=== PATIENT | male | born 1985 | race Caucasian/White ===

== ENCOUNTER 2024-01-12 09:01 | Emergency (ER) | payer OTHER, SELFPAY ==
[2024-01-12 09:02] VITALS: BP 159/90; PULSE 109; RESP 22; TEMP 37.2; O2SAT 100; BMI 36.2
--- NOTE | 2024-01-12 09:11 | EDS_ITS ---
HPI History of Present Illness Chief Complaint: Sore Throat Narrative Narrative: 38-year-old male presenting with right sided throat pain. Onset was 3 days ago. He states it hurts when he swallows. He does not have any trouble breathing. He is tolerating his own secretions. No fevers at home. He states he went to the urgent care today where they did a rapid strep which was negative. He was given Toradol and Decadron which did help some of the pain. He continued to complain of sore throat and difficulty swallowing therefore he was sent to the ER for evaluation. Patient states he would have sworn that he had an ear infection on the right. He states the pain in the right side of his throat radiates into the jaw and the ear. Patient does not have a history of this in the past. No trouble turning his neck. PFSH PFSH Medical History no medical history Home Medications NK 01/12/24 [History Last Taken Unknown] Allergy/AdvReac Type Severity Reaction Status Date / Time No Known Allergies Allergy Verified 01/12/24 09:02 Surgical History (Updated 01/12/24 @ 09:13 by Smiley Quiroz) History of hernia repair History of tonsillectomy and adenoidectomy Social History Smoking Status: Never smoker ROS ROS ED Constitutional Constitutional ED: Denies chills, fever(s) or sweats Eyes Eyes: Denies blurry vision or change in vision ENT ENT ED: Reports ear pain and sore throat Cardiovascular Cardiovascular: Denies chest pain, palpitations or racing heartbeat Respiratory/Chest Respiratory/Chest: Denies cough, dyspnea or sputum Gastrointestinal Gastrointestinal: Denies abdominal pain, constipation, diarrhea, nausea or vomiting Genitourinary Genitourinary ED: Denies dysuria, hematuria or urinary frequency Musculoskeletal Musculoskeletal: Denies arthralgias, myalgias or neck pain Integumentary Denies abscess, Abrasions or rash Neurologic Neurologic: Denies headache(s), paresthesias or weakness Psychiatric Psychiatric: Denies anxiety, depression, suicidal ideation or suicidal thoughts Endocrine Endocrinology: Denies polydipsia or polyuria EXAM Physical Exam Const Vital Signs: 01/12/24 09:02 Temperature 99 F Temperature Source Temporal Pulse Rate 109 H Respiratory Rate 22 H Blood Pressure 159/90 H Blood Pressure Mean 113 Pulse Ox 100 Oxygen Delivery Method Room Air Positive well nourished General Appearance ED: NAD; Negative for pallor HEENT Reports moist mucous membranes Eyes EOMs intact bilaterally Neck full ROM and No nuchal rigidity General: trachea midline and tenderness; Negative for anterior neck swelling, tracheal deviation, submandibular swelling or meningeal signs Resp normal respiratory effort Cardio regular rate and regular rhythm Neuro oriented x3 and CN's II-XII intact bilaterally Sensorium / Orientation: alert Psych mental status grossly normal Skin no rashes or lesions noted General Skin Exam: Negative for jaundice or pallor MDM MDM MDM Narrative Medical decision making narrative: Patient presenting with sore throat, difficulty swallowing. He was sent from the urgent care. He had a negative rapid strep. He was given Decadron and Toradol. He states he currently does not anything for pain. Initially ordered CBC and BMP but after speaking with Dr. Anderson about the patient we do not believe he needs a CT scan. He has no red flags. He recommended putting on Augmentin and if he gets better then to continue antibiotics until completion. If he has any problems he can see him in the office if he just calls and set up an appointment. Return precautions were discussed as well. Patient has Augmentin and Naprosyn ordered. He states he has anything further for pain. Discharged stable condition. Impression: 1. Pharyngitis Lab Data Attestation: I reviewed the patient's lab results. Labs: Laboratory Results - last 24 hr 01/12/24 09:15 WBC 10.6 RBC 4.95 Hgb 14.5 Hct 42.1 MCV 85.1 MCH 29.3 MCHC 34.4 RDW Std Deviation 38.0 RDW Coeff of Serge 12.3 Plt Count 347 MPV 8.6 Immature Gran % (Auto) 0.200 Neut % (Auto) 70.1 H Lymph % (Auto) 19.5 Schleicher % (Auto) 8.6 Eos % (Auto) 1.0 Baso % (Auto) 0.6 Absolute Neuts (auto) 7.4 Absolute Lymphs (auto) 2.07 Nucleated RBC % 0 Sodium Cancelled Potassium Cancelled Chloride Cancelled Carbon Dioxide Cancelled Anion Gap Cancelled BUN Cancelled Creatinine Cancelled Estim Creat Clear Calc Cancelled Est GFR (MDRD) Af Amer Cancelled Est GFR (MDRD) Non-Af Cancelled BUN/Creatinine Ratio Cancelled Glucose Cancelled Calcium Cancelled Discharge Plan Triage Chief Complaint: Sore Throat ED Provider: Abhi Porter Dx/Rx/DC Orders Instructions: ED Pharyngitis, Report Pending Prescriptions: No Action NK Referrals: Luis E Main MD [Med Staff - Active Staff] - As Needed Disposition Disposition: Home, Self Care
[2024-01-12 09:25] LABS: Absolute Lymphocyte Count 2.07 X10^3/uL (0.83-4.51); Absolute Neutrophil Count 7.4 X10^3/uL (2.0-7.7); Basophil# 0.06 X10^3/uL; Basophil% 0.6 % (0-1); Eosinophil# 0.11 X10^3/uL; Hematocrit 42.1 % (40-54); Hemoglobin 14.5 g/dL (13.0-16.5); Lymphocyte # 2.07 X10^3/ul (0.83-4.51); Lymphocyte % 19.5 % (19-41); Mean Corp Hgb Conc 34.4 g/dL (32-36); Mean Corpuscular Hgb 29.3 pg (27.0-32.0); Mean Corpuscular Volume 85.1 fL (80-94); Mean Platelet Vol. 8.6 fl (6.2-12.0); Monocyte# 0.91 X10^3/uL; Monocyte% 8.6 % (0-10); NRBC Flagged by Analyzer 0 % (0-5); Neutrophil # 7.44 X10^3/uL (2.7-7.7); Neutrophil % 70.1 % (47-70); Platelet Count 347 K/mm3 (150-450); RBC Distribution Width CV 12.3 % (11.6-14.6); Red Blood Count 4.95 M/mm3 (4.6-6.2); White Blood Count 10.6 K/mm3 (4.4-11.0)
[2024-01-12 09:56] VITALS: BP 140/95; PULSE 89; RESP 16; O2SAT 96
== END 2024-01-12 09:57 | disposition home or self-care (01) ==
LOC: ED 09:50
PROVIDERS: Emergency Provider Student in an Organized Health Care Education/Training Program; Visit Provider Student in an Organized Health Care Education/Training Program
DX: J02.9 Acute pharyngitis, unspecified (principal); H66.91 Otitis media, unspecified, right ear
CPT/HCPCS: 85025; 99284; A4216